=== PATIENT | male | born 1990 | race Caucasian/White ===

== ENCOUNTER 2018-11-24 19:56 | Emergency (ER) | payer OTHER, SELFPAY ==
[2018-11-24 20:02] VITALS: BP 130/63; PULSE 74; RESP 16; TEMP 37; O2SAT 98
--- NOTE | 2018-11-24 20:21 | ED.GENADUL_ITS ---
Discharge Plan Disposition Patient Disposition: HOME Condition: Good Discharge Details Chief Complaint: Laceration Clinical Impression: Wound infection Primary Care Provider: Brennan Collazo ED Provider: Anurag Riley Home Meds and New Rx's Prescriptions: New cephalexin 500 mg capsule 500 mg PO Q8H Qty: 20 RF: 0 Continued buprenorphine-naloxone [Suboxone] 1 EACH film 6 mg Sublingual DAILY RF: 0 Discharge Instructions Instructions: Wound Infection (ED) Additional Instructions: Please use warm compresses to help the wound to soften and drain. Antibiotic as prescribed. Tylenol or Motrin as needed for pain. Follow-up with primary care in 2 to 3 days if not starting to get better. Return to ED if fevers and chills, increasing pain or swelling, inability to ambulate or flex/extend knee, other concerns. Referrals: Brennan Collazo. [Primary Care Provider] - Medical Decision Making Patient is not up-to-date on tetanus so this is administered. X-ray of the left knee (AP and lateral) done for foreign body. No foreign body appreciated on my review. Radiology feels possibly tiny foreign bodies in the superficial subcutaneous tissue. Certainly nothing that would be amendable to extraction. Skin prepped with chlorhexidine. Area of wound injected with 1% lidocaine with epinephrine. Number 18-gauge needle inserted into the middle of the swelling with no return of pus. There is no cutaneous abscess. I do not suspect tendinitis, fasciitis, septic joint. He should do well with warm compresses and Keflex. Follow-up with primary care in a few days if not getting better. Return to ED if he develops worsening pain, swelling, inability to ambulate, fever or chills. HPI General Mode of arrival: ambulatory . Date/Time Provider Initiated Documentation: 11/24/18 20:20 . Limitations to Documentation: no limitations . Information obtained by: patient . HPI Narrative: Patient presents to ED with complaint of left knee wound. Patient initially suffered abrasions and minor lacerations when sliding into second base while playing softball this weekend. He cleaned it out well and has been trying to keep it clean. The area along the urias seems to be okay. The area around the knee itself is painful, red, swollen. The knee is normal. He is able to flex and extend and ambulate. The redness and swelling is superficial involving the skin and the wound. He denies fevers. He feels well otherwise. He occasionally has noticed some drainage from the wound. Related Data Home Medications Medication Instructions Recorded Confirmed buprenorphine-naloxone [Suboxone] 6 mg SUBLINGUAL DAILY film 12/03/15 11/24/18 cephalexin 500 mg PO Q8H #20 cap 11/24/18 Previous Rx's Medication Instructions Recorded cephalexin 500 mg PO Q8H #20 cap 11/24/18 Allergies Allergy/AdvReac Type Severity Reaction Status Date / Time No Known Allergies Allergy Unverified 11/24/18 20:07 General Stated Complaint: Laceration JAIME: 3 Review of Systems Constitutional Denies chills and Denies fever(s) Musculoskeletal Denies arthralgias and Denies joint swelling Integumentary/Breasts Reports erythema and Reports wounds [facility] Surgical History Appendectomy Family History Mother No problems noted. Father No problems noted. Sister No problems noted. Brother No problems noted. Grandfather No problems noted. Grandfather No problems noted. Grandmother No problems noted. Grandmother No problems noted. Social History Smoking/Tobacco Use Status: Current every day Alcohol Intake: never Drug use: Current Sobriety Substance use type: does not use Do you feel safe at home: Yes Do you feel safe in your relationship?: Yes Exam Narrative Exam Narrative: Vitals: Afebrile with normal vital signs. Const: WDWN male in NAD. HEENT: NC/AT. Normal facial exam. Neck: Supple. Trachea midline. Lungs: Normal respiratory effort. Neuro: A+O x 3. CN grossly in tact. Good strength and no focal deficit. Ext: No C/C/E. Normal ROM of the left knee. No effusion noted. Skin: Warm and dry. Minor abrasions to the left urias. Puncture like wound to the distal knee (area of patella tendon attachment) with erythema, some swelling but seems firm not fluctuant. No drainage. No extensive erythema. Course Vital Signs Temperature 98.6 F 11/24/18 20:02 Pulse 74 11/24/18 20:02 Respiratory Rate 16 11/24/18 20:02 Blood Pressure 130/63 11/24/18 20:02 Pulse Oximetry 98 11/24/18 20:02 Temperature 98.6 F 11/24/18 20:02 Temperature Source Skin 11/24/18 20:02 Pulse 74 11/24/18 20:02 Respiratory Rate 16 11/24/18 20:02 Respiratory Effort 11/24/18 20:07 Blood Pressure 130/63 11/24/18 20:02 Blood Pressure Position Sitting 11/24/18 20:02 Pulse Oximetry 98 11/24/18 20:02 Oxygen Delivery Method Room Air 11/24/18 20:02 Oxygen Flow Rate 0 11/24/18 20:02 Pain Level 8 11/24/18 20:02 Procedures Abscess I/D Site: Lower Extremity Side (if applicable): Left Local Anesthetic: Lidocaine 1% and With Epi Amount of anesthesia used (mL): 2 Technique: Needle Aspiration Amount of fluid expressed (mL): 0
--- NOTE | 2018-11-24 20:35 | DI.RAD_ITS ---
SYMPTOM/DIAGNOSIS: AP AND LATERAL ONLY FOR FOREIGN BODY LEFT KNEE: Two views. No bone or joint abnormality is identified. Anterior to the tibial tuberosity there is soft tissue thickening present. There are two tiny radiopaque foreign body densities seen within the soft tissue swelling. They are less than 2 mm in size. These may represent tiny foreign bodies. IMPRESSION: 1. No acute fracture or dislocation. 2. Soft tissue swelling anterior to the tibial tuberosity. 3. Two tiny densities seen within the soft tissues anterior to the tibial tuberosity. These may reflect small foreign bodies.
--- NOTE | 2018-11-24 21:20 | DI.VRAD_ITS ---
EXAM: XR Left Knee EXAM DATE/TIME: 11/24/2018 8:36 PM CLINICAL HISTORY: 28 years old, male; Patient HX: ? Fb, patient sts has a pimple in distal knee below patella. TECHNIQUE: Imaging protocol: XR Left knee. Views: 1 or 2 views. COMPARISON: No relevant prior studies available. FINDINGS: There is no evidence of fracture. The joint spaces are well maintained. There is no bony destruction. There is no joint effusion. There is some soft tissue swelling anterior to the tibial tubercle. Several tiny radiodensities are seen within the soft tissues which could represent tiny foreign bodies. IMPRESSION: 1. No evidence of fracture. 2. Soft tissue swelling anteriorly with tiny radiodensities which could represent small foreign bodies. Dictated and Authenticated by: Og Muro MD. Ordering:DOLLY Osborn MD
[2018-11-24 21:30] VITALS: BP 130/63; PULSE 74; RESP 16; TEMP 37; O2SAT 98
[2018-11-24] MEDS: Cephalexin 500 MG CAP PO ×2 (21:30)
== END 2018-11-24 21:30 | disposition home or self-care (01) ==
PROVIDERS: Emergency Provider Emergency Medicine; PCP Family Medicine
DX: S81.032A Puncture wound without foreign body, left knee, initial encounter (principal); S80.812A Abrasion, left lower leg, initial encounter; L08.9 Local infection of the skin and subcutaneous tissue, unspecified; X50.9XXA Other and unspecified overexertion or strenuous movements or postures, initial encounter; Y93.64 Activity, baseball
CPT/HCPCS: 10160; 90471; 99284; 73560; 99281

== ENCOUNTER 2021-12-28 21:01 | Emergency (ER) | payer SELFPAY ==
[2021-12-28 21:19] VITALS: BP 144/61; PULSE 75; RESP 18; TEMP 36.9; O2SAT 98
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
[2021-12-28 23:39] VITALS: BP 143/66; PULSE 79; RESP 17; TEMP 36.8; O2SAT 98
== END 2021-12-28 23:38 | disposition home or self-care (01) ==
PROVIDERS: Emergency Provider Emergency Medicine; PCP Family Medicine
DX: S01.81XA Laceration without foreign body of other part of head, initial encounter (principal); F17.200 Nicotine dependence, unspecified, uncomplicated; V57.5XXA Driver of pick-up truck or van injured in collision with fixed or stationary object in traffic accident, initial encounter
CPT/HCPCS: 12011; 99284; 70450; 70486; 72125; 99282